=== PATIENT | female | born 1995 | race Caucasian/White ===

== ENCOUNTER 2016-12-23 00:04 | Emergency (ER) | payer OTHER, SELFPAY ==
--- NOTE | 2016-12-23 00:47 | EDDOCDS ---
Physician Documentation [facility] Name: Koko Canseco Age: 21 yrs Sex: Female : 1995 Arrival Date: 12/23/2016 Time: 00:04 Bed Triage 2 Private MD: Disposition: 12/23/16 00:42 Discharged to Home/Self Care. Impression: Puncture wound of lip and oral cavity without foreign body. - Condition is Stable. - Discharge Instructions: Puncture Wound. - Medication Reconciliation, Local Pharmacy Hours form. - Follow up: Private Physician; When: Call to arrange an appointment; Reason: Recheck today's complaints, Continuance of care. - Problem is new. - Symptoms are unchanged. Historical: - Allergies: No known drug Allergies; - Home Meds: 1. none - PMHx: none; - PSHx: Cholecystectomy; - Social history: Smoking status: Patient states was never smoker of tobacco. No barriers to communication noted, The patient speaks fluent Cambodian, Speaks appropriately for age. - Family history: No immediate family members are acutely ill. - : The pt / caregiver states he / she is not on anticoagulants. Home medication list is obtained from the patient. - Exposure Risk Screening:: None identified. 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 1 in. (154.94 cm); Pain 0/10; 00:10 Body Mass Index 24.56 (58.97 kg, 154.94 cm) nn1 Signatures: Dk Ragland PA PA mo1 Eliza Callejas,RN RN nn1 MTDD
--- NOTE | 2016-12-23 00:47 | EDDOCDS ---
Nurse's Notes [facility] Name: Koko Canseco Age: 21 yrs Sex: Female : 1995 Arrival Date: 12/23/2016 Time: 00:04 Bed Triage 2 Private MD: Diagnosis: Puncture wound of lip and oral cavity without foreign body Presentation: 12/23 00:07 Presenting complaint: Patient states: she has the ball of her lip piercing stuck in her nn1 lip. Reports she has tried for hours to remove with no success. Adult Sepsis Screening: The patient does not have new or worsening altered mentation. Patient's respiratory rate is less than 22. Systolic blood pressure is greater than 100. Patient has a qSOFA score of 0- Negative Sepsis Screen. Suicide/Homicide risk assessment- the patient denies having any suicidal and/or homicidal ideations and does not present with any other emotional, behavioral or mental health complaints. 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 Transition of care: patient was not received from another setting of care. 00:07 Acuity: CHRISTO Level 4 nn1 00:07 Method Of Arrival: Walkin/Carried/Asstd nn1 Triage Assessment: 00:09 General: Appears in no apparent distress, comfortable, Behavior is appropriate for age, nn1 cooperative. Pain: Denies pain. HIV screening NA for this visit Offered previously. Neurological: Level of Consciousness is awake, alert, obeys commands. Derm: Skin is pink, warm & dry. Musculoskeletal: Circulation, motion, and sensation intact Capillary refill < 3 seconds Slight redness to bottom lip, no active bleeding at this time. 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 none - PMHx: none; - PSHx: Cholecystectomy; - Social history: Smoking status: Patient states was never smoker of tobacco. No barriers to communication noted, The patient speaks fluent Fijian, Speaks appropriately for age. - Family history: No immediate family members are acutely ill. - : The pt / caregiver states he / she is not on anticoagulants. Home medication list is obtained from the patient. - Exposure Risk Screening:: None identified. Screenin:44 Screening information is obtained from the patient. Fall risk: No risks identified. nn1 Assistance ADL's: requires no assistance with activities of daily living. Abuse/DV Screen: The patient / caregiver reports he/she is: not in a situation that causes fear, pain or injury. Nutritional screening: No deficits noted. Advance Directives: There is no active DNR order. home support is adequate. Assessment: 00:41 General: Appears in no apparent distress, comfortable, Behavior is appropriate for age, nn1 cooperative, Provider attempted to remove foreign body from lip, did not feel foreign body. Patient tolerated well, mild bleeding of lip. Gauze placed on lower lip.. Respiratory: Airway is patent Respiratory effort is even, unlabored, Respiratory pattern is regular, symmetrical. Derm: Skin is pink, warm & dry. Mild swelling of right lower lip. Vital Signs: 00:10 BP 141 / 80; Pulse 105; Resp 18; Temp 97.9(O); Pulse Ox 97% on R/A; Weight 58.97 kg; nn1 Height 5 ft. 1 in. (154.94 cm); Pain 0/10; 00:10 Body Mass Index 24.56 (58.97 kg, 154.94 cm) nn1 Vitals: 00:10 Log In Time: December 23, 2016 at 00:04. nn1 ED Course: 00:05 Patient visited by Tanya Casey. gjb 00:05 Patient moved to Waiting gjb 00:07 Patient moved to Triage 2 nn1 00:09 Triage Initiated nn1 00:27 Dk Ragland PA is PHCP. mo1 00:27 Jose A Sanchez DO is Attending Physician. mo1 00:41 Patient visited by Eliza Callejas RN. nn1 00:41 Patient visited by Dk Ragland PA. mo1 00:45 The patient / caregiver is instructed regarding the plan of care and ED course. nn1 00:45 No IV's were initiated during this patient's visit. No procedures done that require nn1 assistance. Order Results: There are currently no results for this order. Outcome: 00:42 Discharge ordered by Provider. mo1 00:45 Discharge Assessment: Patient awake, alert and oriented x 3. No cognitive and/or nn1 functional deficits noted. Patient verbalized understanding of disposition instructions. patient administered narcotics - no. The following High Risk Discharge criteria are identified: None. Discharged to home ambulatory, with friend. Condition: stable. No special radiology studies were completed. Property :Personal belongings accompany Pt. 00:45 Patient left the ED. nn1 Signatures: Dk Ragland PA PA mo1 Nunez, NikkoleRN RN nn1 Tanya Casey MTDD
--- NOTE | 2016-12-25 01:47 | EDDOCDS ---
Nurse's Notes [facility] Name: Koko Canseco Age: 21 yrs Sex: Female : 1995 Arrival Date: 12/23/2016 Time: 00:04 Bed Triage 2 Private MD: Diagnosis: Puncture wound of lip and oral cavity without foreign body Presentation: 12/23 00:07 Presenting complaint: Patient states: she has the ball of her lip piercing stuck in her nn1 lip. Reports she has tried for hours to remove with no success. Adult Sepsis Screening: The patient does not have new or worsening altered mentation. Patient's respiratory rate is less than 22. Systolic blood pressure is greater than 100. Patient has a qSOFA score of 0- Negative Sepsis Screen. Suicide/Homicide risk assessment- the patient denies having any suicidal and/or homicidal ideations and does not present with any other emotional, behavioral or mental health complaints. 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 Transition of care: patient was not received from another setting of care. 00:07 Acuity: CHRISTO Level 4 nn1 00:07 Method Of Arrival: Walkin/Carried/Asstd nn1 Triage Assessment: 00:09 General: Appears in no apparent distress, comfortable, Behavior is appropriate for age, nn1 cooperative. Pain: Denies pain. HIV screening NA for this visit Offered previously. Neurological: Level of Consciousness is awake, alert, obeys commands. Derm: Skin is pink, warm & dry. Musculoskeletal: Circulation, motion, and sensation intact Capillary refill < 3 seconds Slight redness to bottom lip, no active bleeding at this time. 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 none - PMHx: none; - PSHx: Cholecystectomy; - Social history: Smoking status: Patient states was never smoker of tobacco. No barriers to communication noted, The patient speaks fluent Filipino, Speaks appropriately for age. - Family history: No immediate family members are acutely ill. - : The pt / caregiver states he / she is not on anticoagulants. Home medication list is obtained from the patient. - Exposure Risk Screening:: None identified. Screenin:44 Screening information is obtained from the patient. Fall risk: No risks identified. nn1 Assistance ADL's: requires no assistance with activities of daily living. Abuse/DV Screen: The patient / caregiver reports he/she is: not in a situation that causes fear, pain or injury. Nutritional screening: No deficits noted. Advance Directives: There is no active DNR order. home support is adequate. Assessment: 00:41 General: Appears in no apparent distress, comfortable, Behavior is appropriate for age, nn1 cooperative, Provider attempted to remove foreign body from lip, did not feel foreign body. Patient tolerated well, mild bleeding of lip. Gauze placed on lower lip.. Respiratory: Airway is patent Respiratory effort is even, unlabored, Respiratory pattern is regular, symmetrical. Derm: Skin is pink, warm & dry. Mild swelling of right lower lip. Vital Signs: 00:10 BP 141 / 80; Pulse 105; Resp 18; Temp 97.9(O); Pulse Ox 97% on R/A; Weight 58.97 kg; nn1 Height 5 ft. 1 in. (154.94 cm); Pain 0/10; 00:10 Body Mass Index 24.56 (58.97 kg, 154.94 cm) nn1 Vitals: 00:10 Log In Time: December 23, 2016 at 00:04. nn1 ED Course: 00:05 Patient visited by Tanya Casey. gjb 00:05 Patient moved to Waiting gjb 00:07 Patient moved to Triage 2 nn1 00:09 Triage Initiated nn1 00:27 Dk Ragland PA is PHCP. mo1 00:27 Jose A Sanchez DO is Attending Physician. mo1 00:41 Patient visited by Eliza Callejas RN. nn1 00:41 Patient visited by Dk Ragland PA. mo1 00:45 The patient / caregiver is instructed regarding the plan of care and ED course. nn1 00:45 No IV's were initiated during this patient's visit. No procedures done that require nn1 assistance. 00:50 [place] [place] was [place] into [employer] and attached to record. pm4 10:56 T-Sheet-- Draft Copy was scanned into [employer] and attached to record. gb Order Results: There are currently no results for this order. Outcome: 00:42 Discharge ordered by Provider. mo1 00:45 Discharge Assessment: Patient awake, alert and oriented x 3. No cognitive and/or nn1 functional deficits noted. Patient verbalized understanding of disposition instructions. patient administered narcotics - no. The following High Risk Discharge criteria are identified: None. Discharged to home ambulatory, with friend. Condition: stable. No special radiology studies were completed. Property :Personal belongings accompany Pt. 00:45 Patient left the ED. nn1 Signatures: Della Garcia, Reg Reg gb Dk Ragland PA PA mo1 Eliza Callejas RN RN nn1 Tanya Casey Paul, Reg Reg pm4 Chart Complete MTDD
--- NOTE | 2016-12-25 01:47 | EDDOCDS ---
Physician Documentation [facility] Name: Koko Canseco Age: 21 yrs Sex: Female : 1995 Arrival Date: 12/23/2016 Time: 00:04 Bed Triage 2 Private MD: Disposition: 12/23/16 00:42 Discharged to Home/Self Care. Impression: Puncture wound of lip and oral cavity without foreign body. - Condition is Stable. - Discharge Instructions: Puncture Wound. - Medication Reconciliation, Local Pharmacy Hours form. - Follow up: Private Physician; When: Call to arrange an appointment; Reason: Recheck today's complaints, Continuance of care. - Problem is new. - Symptoms are unchanged. Historical: - Allergies: No known drug Allergies; - Home Meds: 1. none - PMHx: none; - PSHx: Cholecystectomy; - Social history: Smoking status: Patient states was never smoker of tobacco. No barriers to communication noted, The patient speaks fluent Chinese, Speaks appropriately for age. - Family history: No immediate family members are acutely ill. - : The pt / caregiver states he / she is not on anticoagulants. Home medication list is obtained from the patient. - Exposure Risk Screening:: None identified. 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 1 in. (154.94 cm); Pain 0/10; 00:10 Body Mass Index 24.56 (58.97 kg, 154.94 cm) nn1 Procedures: 00:55 Foreign Body Removal: piece of jewelry, from the left left corner of mouth, pt with mo1 potential for metal piercing FB within piercing site of left lower lip. pt had 18g needle inserted through peircing orifice without complication and soft tissue around piercing orifice palpated without obvious FB found. 18g needle extracted without complication. pt tolerated well. pt has no obvious FB or piercing retained . MDM: 00:50 [facility] Payment Agreement was scanned into [employer] and attached to record. pm4 10:56 T-Sheet-- Draft Copy was scanned into [employer] and attached to record. gb Signatures: Della Garcia, Reg Reg gb Dk Ragland PA PA mo1 Eliza CallejasRN RN nn1 Qasim Wood, Reg Reg pm4 The chart was reviewed and I authenticate all verbal orders and agree with the evaluation and treatment provided.Attachments: 00:50 [facility] [place] Payment Agreement pm4 10:56 T-Sheet-- Draft Copy gb Chart Complete MTDD
--- NOTE | 2016-12-25 01:47 | EDDOCDS ---
Physician Documentation [facility] Name: Koko Canseco Age: 21 yrs Sex: Female : 1995 Arrival Date: 12/23/2016 Time: 00:04 Bed Triage 2 Private MD: Disposition: 12/23/16 00:42 Discharged to Home/Self Care. Impression: Puncture wound of lip and oral cavity without foreign body. - Condition is Stable. - Discharge Instructions: Puncture Wound. - Medication Reconciliation, Local Pharmacy Hours form. - Follow up: Private Physician; When: Call to arrange an appointment; Reason: Recheck today's complaints, Continuance of care. - Problem is new. - Symptoms are unchanged. Historical: - Allergies: No known drug Allergies; - Home Meds: 1. none - PMHx: none; - PSHx: Cholecystectomy; - Social history: Smoking status: Patient states was never smoker of tobacco. No barriers to communication noted, The patient speaks fluent Egyptian, Speaks appropriately for age. - Family history: No immediate family members are acutely ill. - : The pt / caregiver states he / she is not on anticoagulants. Home medication list is obtained from the patient. - Exposure Risk Screening:: None identified. 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 1 in. (154.94 cm); Pain 0/10; 00:10 Body Mass Index 24.56 (58.97 kg, 154.94 cm) nn1 Procedures: 00:55 Foreign Body Removal: piece of jewelry, from the left left corner of mouth, pt with mo1 potential for metal piercing FB within piercing site of left lower lip. pt had 18g needle inserted through peircing orifice without complication and soft tissue around piercing orifice palpated without obvious FB found. 18g needle extracted without complication. pt tolerated well. pt has no obvious FB or piercing retained . MDM: 00:50 [facility] Payment Agreement was scanned into [employer] and attached to record. pm4 10:56 T-Sheet-- Draft Copy was scanned into [employer] and attached to record. gb Signatures: Della Garcia, Reg Reg gb Dk Ragland PA PA mo1 Eliza CallejasRN RN nn1 Qasim Wood, Reg Reg pm4 The chart was reviewed and I authenticate all verbal orders and agree with the evaluation and treatment provided.Attachments: 00:50 [facility] [place] Payment Agreement pm4 10:56 T-Sheet-- Draft Copy gb Chart Complete MTDD
== END 2016-12-23 00:45 | disposition home or self-care (01) ==
LOC: M ED 00:04
DX: S01.531A Puncture wound without foreign body of lip, initial encounter (principal); W45.8XXA Other foreign body or object entering through skin, initial encounter; Y92.89 Other specified places as the place of occurrence of the external cause; Y93.89 Activity, other specified; Y99.8 Other external cause status

== ENCOUNTER → 2018-02-14 | Outpatient (REF) | payer OTHER | LOC: M SFHCLERA 14:23 | DX: J02.9 Acute pharyngitis, unspecified (principal) ==

== ENCOUNTER → 2018-06-16 | Outpatient (REF) | payer OTHER | LOC: M SFHCLERA 11:29 | DX: N39.0 Urinary tract infection, site not specified (principal) | CPT/HCPCS: 87086 ==

== ENCOUNTER → 2018-09-02 | Outpatient (REF) | payer OTHER | LOC: M SFHCLERA 12:40 | DX: J02.9 Acute pharyngitis, unspecified (principal) ==

== ENCOUNTER 2018-10-14 12:20 | Outpatient (CLI) | payer OTHER ==
[2018-10-14 14:16] LABS: HEMATOCRIT 35.5 % (36.0-47.0); HEMOGLOBIN 12.8 g/dl (12.0-15.5); MEAN CORPUSCULAR HEMOGLOBIN 33.1 pg (27.0-33.0); MEAN CORPUSCULAR HGB CONC 36.1 g/dl (32.0-36.5); MEAN CORPUSCULAR VOLUME 91.7 fl (80.0-96.0); PLATELET COUNT, AUTOMATED 202 10^3/uL (150-450); RED BLOOD COUNT 3.87 10^6/uL (4.00-5.40); RED CELL DISTRIBUTION WIDTH 12.5 % (11.5-14.5); WHITE BLOOD COUNT 8.3 10^3/uL (4.0-10.0)
[2018-10-14 14:35] LABS: INR 0.95; PROTHROMBIN TIME 12.7 SECONDS (12.1-14.4)
[2018-10-14 14:36] LABS: FIBRINOGEN 420 MG/DL (221-452)
== END 2018-10-14 16:17 | disposition home or self-care (01) ==
LOC: M LDO 12:20
DX: O99.89 Other specified diseases and conditions complicating pregnancy, childbirth and the puerperium (principal); O9A.212 Injury, poisoning and certain other consequences of external causes complicating pregnancy, second trimester; W01.0XXA Fall on same level from slipping, tripping and stumbling without subsequent striking against object, initial encounter; Y92.89 Other specified places as the place of occurrence of the external cause; Z3A.25 25 weeks gestation of pregnancy
CPT/HCPCS: 76815

== ENCOUNTER → 2019-03-21 | Outpatient (REF) | payer OTHER | LOC: M SFHCLERA 12:33 | PROVIDERS: ATTEND Nurse Practitioner Family | DX: J00 Acute nasopharyngitis [common cold] (principal) ==

== ENCOUNTER → 2019-08-05 | Outpatient (REF) | payer OTHER, SELFPAY ==
[2019-08-05 22:11] LABS: CHLAMYDIA DNA AMPLIFICATION NEGATIVE (NEGATIVE); GC DNA AMPLIFICATION NEGATIVE (NEGATIVE)
== END ==
LOC: M SFHCLERA 19:26
PROVIDERS: ATTEND Physician Assistant
DX: N89.8 Other specified noninflammatory disorders of vagina (principal)

== ENCOUNTER → 2019-08-28 | Outpatient (REF) | payer OTHER ==
[2019-08-28 13:42] LABS: APPEARANCE, URINE CLOUDY (CLEAR); BACTERIA, URINE AUTO NEGATIVE (NEGATIVE); BILIRUBIN, URINE AUTO NEGATIVE (NEGATIVE); BLOOD, URINE BLOOD NEGATIVE (NEGATIVE); COLOR, URINE YELLOW (YELLOW); GLUCOSE, URINE (UA) AUTO NEGATIVE (NEGATIVE); KETONE, URINE AUTO NEGATIVE (NEGATIVE); LEUKOCYTE ESTERASE, URINE AUTO NEGATIVE (NEGATIVE); MUCUS, URINE MODERATE (NEGATIVE); NITRITE, URINE AUTO NEGATIVE (NEGATIVE); PROTEIN, URINE AUTO NEGATIVE (NEGATIVE); RBC, URINE AUTO 2 /HPF (0-3); SPECIFIC GRAVITY URINE AUTO 1.027 (1.002-1.035); SQUAMOUS EPITHELIAL CELL UR AU 24 /HPF (0-6); UROBILINOGEN, URINE AUTO 0.2 mg/dL (0.0-2.0); WBC, URINE AUTO 1 /HPF (0-3)
== END ==
LOC: M LAB REF 12:41
PROVIDERS: ATTEND Nurse Practitioner Women's Health
DX: Z32.02 Encounter for pregnancy test, result negative (principal)

== ENCOUNTER → 2020-01-19 | Outpatient (CLI) | payer OTHER ==
--- NOTE | 2020-01-19 14:10 | REP ---
Right foot series: Four views. History: Injury. Findings: Four views right foot show overall normal mineralization. Joint spaces are preserved. No fractures seen. No change from comparison study February 05, 2012. Impression: Negative radiographs of the right foot. No fracture seen. Electronically Signed by Jcarlos Mckenna MD 01/19/2020 02:02 P
== END ==
LOC: M LRY 13:19
PROVIDERS: ATTEND Nurse Practitioner Family
DX: S99.921A Unspecified injury of right foot, initial encounter (principal); X58.XXXA Exposure to other specified factors, initial encounter; Y92.89 Other specified places as the place of occurrence of the external cause

== ENCOUNTER → 2020-07-21 | Outpatient (REF) | payer OTHER | LOC: M SFHCLUC 16:16 | PROVIDERS: ATTEND Physician Assistant | DX: R30.0 Dysuria (principal) ==

== ENCOUNTER 2020-10-23 22:10 | Emergency (ER) | payer OTHER ==
[~2020-10-23] VITALS: Ht 154.9 cm; Wt 61.4 kg
[2020-10-23] MEDS ORDERED: NS 1,000 ML IV ONE (23:00)
[2020-10-23] MEDS ORDERED: ONDANSETRON 4MG/2ML VIAL IV ONE (23:00)
[2020-10-23 23:30] LABS: BASO % 0.4 % (0.0-1.0); EOS % 0.3 % (0.0-3.0); HEMATOCRIT 43.4 % (36.0-47.0); LYMPH # 2.1 10^3/uL (1.5-5.0); LYMPH % 28.4 % (24.0-44.0); MEAN CORPUSCULAR HEMOGLOBIN 30.9 pg (27.0-33.0); MEAN CORPUSCULAR HGB CONC 34.6 g/dl (32.0-36.5); MEAN CORPUSCULAR VOLUME 89.3 fl (80.0-96.0); MONO # 0.4 10^3/uL (0.0-0.8); NEUTROPHILS # 4.7 10^3/uL (1.5-8.5); NEUTROPHILS % 65.3 % (36.0-66.0); PLATELET COUNT, AUTOMATED 230 10^3/uL (150-450); RED BLOOD COUNT 4.86 10^6/uL (4.00-5.40); WHITE BLOOD COUNT 7.2 10^3/uL (4.0-10.0)
[2020-10-24 00:03] LABS: AMPHETAMINES LEVEL URINE NEGATIVE (NEGATIVE); BARBITURATES URINE NEGATIVE (NEGATIVE); BENZODIAZEPINES URINE NEGATIVE (NEGATIVE); CANNABINOIDS URINE NEGATIVE (NEGATIVE); COCAINE METABOLITE URINE NEGATIVE (NEGATIVE); HCG, SERUM QUALITATIVE NEGATIVE (NEGATIVE); METHADONE URINE NEGATIVE (NEGATIVE); OPIATES URINE NEGATIVE (NEGATIVE); PHENCYCLIDINE URINE NEGATIVE (NEGATIVE)
[2020-10-24 00:12] LABS: ACETAMINOPHEN LEVEL < 2.0 UG/ML (10.0-30.0); ALBUMIN 4.3 GM/DL (3.2-5.2); ALT/SGPT 28 U/L (12-78); BILIRUBIN,DIRECT < 0.1 MG/DL (0.0-0.2); BILIRUBIN,TOTAL 0.3 MG/DL (0.2-1.0); BLOOD UREA NITROGEN 11 MG/DL (7-18); CALCIUM LEVEL 8.7 MG/DL (8.5-10.1); CARBON DIOXIDE LEVEL 27 MEQ/L (21-32); CHLORIDE LEVEL 109 MEQ/L (98-107); CPK CREATINE PHOSPHOKINASE 128 U/L (26-192); CREATININE FOR GFR 0.97 MG/DL (0.55-1.30); ETHYL ALCOHOL (ETHANOL) 0.162 % (0.000-0.010); GLOMERULAR FILTRATION RATE > 60.0 (>60); GLUCOSE, FASTING 98 MG/DL (70-100); POTASSIUM SERUM 4.1 MEQ/L (3.5-5.1); SALICYLATE LEVEL < 1.7 MG/DL (5.0-30.0); SODIUM LEVEL 143 MEQ/L (136-145); THYROID STIMULATING HORMONE 0.964 uIU/ML (0.358-3.740); TOTAL PROTEIN 7.5 GM/DL (6.4-8.2)
[2020-10-24 01:35] VITALS: BP 100/56
--- NOTE | 2020-10-24 08:58 | ECGEPIP ---
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
== END 2020-10-24 01:35 | disposition home or self-care (01) ==
LOC: M ED 22:10
DX: F10.129 Alcohol abuse with intoxication, unspecified (principal); F17.290 Nicotine dependence, other tobacco product, uncomplicated
CPT/HCPCS: 80048; 80076; 80307; 82550; 84443; 84703; 85025; 93005; 93041; 94760; 96361; 96374; 99285; G0480; J2405